=== PATIENT | female | born 1935 | race Caucasian/White ===

== ENCOUNTER 2022-05-03 11:35 | Outpatient (CLI) | payer MEDICARE, BC, SELFPAY ==
[2022-05-03 16:53] LABS: INR 2.95 (0.91-1.10)
== END 2022-05-03 11:36 | disposition home or self-care (01) ==
LOC: NFLDREF 11:35
PROVIDERS: PCP Internal Medicine; Visit Provider Internal Medicine
DX: D50.9 Iron deficiency anemia, unspecified (principal); Z51.81 Encounter for therapeutic drug level monitoring; I48.91 Unspecified atrial fibrillation; Z79.01 Long term (current) use of anticoagulants; I10 Essential (primary) hypertension
CPT/HCPCS: 82728; 85610

== ENCOUNTER 2022-12-20 13:46 | Outpatient (CLI) | payer MEDICARE, BC, SELFPAY ==
[2022-12-20 14:29] LABS: INR 3.35 (0.91-1.10); Prothrombin Time 35.5 Seconds
== END 2022-12-20 13:47 | disposition home or self-care (01) ==
PROVIDERS: PCP Internal Medicine; Visit Provider Internal Medicine
DX: Z79.01 Long term (current) use of anticoagulants (principal)
CPT/HCPCS: 85610

== ENCOUNTER 2023-02-13 09:38 | Outpatient (CLI) | payer MEDICARE, BC, SELFPAY | END 2023-02-13 09:39 | disposition home or self-care (01) | LOC: NFLDREF 02-14 22:08 | PROVIDERS: PCP Internal Medicine; Referring Provider Internal Medicine; Visit Provider Internal Medicine | DX: M81.0 Age-related osteoporosis without current pathological fracture (principal); D50.9 Iron deficiency anemia, unspecified; E66.9 Obesity, unspecified; E03.9 Hypothyroidism, unspecified; I48.91 Unspecified atrial fibrillation; Z13.6 Encounter for screening for cardiovascular disorders | CPT/HCPCS: 80061; 82306; 84439; 84443 ==

== ENCOUNTER 2023-05-09 13:50 | Outpatient (CLI) | payer MEDICARE, BC, SELFPAY | END 2023-05-09 13:51 | disposition home or self-care (01) | LOC: NFLDREF 05-10 07:24 | PROVIDERS: PCP Internal Medicine; Referring Provider Internal Medicine; Visit Provider Internal Medicine | DX: I48.91 Unspecified atrial fibrillation (principal) | CPT/HCPCS: 85610 ==